=== PATIENT | male | born 1950 | race Caucasian/White ===

== ENCOUNTER → 2024-02-03 15:08 | Outpatient (REF) | payer OTHER, SELFPAY | LOC: RAD 15:08 | PROVIDERS: ATTENDING PHYSICIAN Nurse Practitioner Family | DX: S99.922A Unspecified injury of left foot, initial encounter (principal) | CPT/HCPCS: 73630 ==

== ENCOUNTER 2024-09-10 07:42 | Outpatient (RCR) | payer OTHER, SELFPAY | END 2024-09-10 23:59 | disposition home or self-care (01) | LOC: RPT 07:42 | PROVIDERS: ATTENDING PHYSICIAN Orthopaedic Surgery Hand Surgery; FAMILY PHYSICIAN Nurse Practitioner Family | DX: M75.122 Complete rotator cuff tear or rupture of left shoulder, not specified as traumatic (principal); Z73.6 Limitation of activities due to disability | CPT/HCPCS: 97010; 97110; 97162 ==

== ENCOUNTER 2024-09-24 06:32 | Outpatient (RCR) | payer OTHER, SELFPAY | END 2024-09-24 23:59 | disposition home or self-care (01) | LOC: RPT 06:32 | PROVIDERS: ATTENDING PHYSICIAN Orthopaedic Surgery Hand Surgery; FAMILY PHYSICIAN Nurse Practitioner Family | DX: M75.122 Complete rotator cuff tear or rupture of left shoulder, not specified as traumatic (principal); Z73.6 Limitation of activities due to disability; M25.512 Pain in left shoulder | CPT/HCPCS: 97010; 97110 ==

== ENCOUNTER 2024-10-15 07:02 | Outpatient (RCR) | payer OTHER, SELFPAY | END 2024-10-15 14:48 | disposition home or self-care (01) | LOC: RPT 07:02 | PROVIDERS: ATTENDING PHYSICIAN Orthopaedic Surgery Hand Surgery; FAMILY PHYSICIAN Nurse Practitioner Family | DX: M75.122 Complete rotator cuff tear or rupture of left shoulder, not specified as traumatic (principal); Z73.6 Limitation of activities due to disability; M25.512 Pain in left shoulder | CPT/HCPCS: 97110 ==

== ENCOUNTER → 2025-02-02 09:56 | Outpatient (REF) | payer OTHER, SELFPAY | LOC: RAD 09:56 | PROVIDERS: ATTENDING PHYSICIAN Nurse Practitioner Family | DX: M25.522 Pain in left elbow (principal) | CPT/HCPCS: 73060; 73080 ==

== ENCOUNTER 2025-06-02 07:29 | Emergency (ER) | payer OTHER, SELFPAY ==
[2025-06-02 07:36] VITALS: BP 150/92
[2025-06-02 07:39] VITALS: BMI 30.2
--- NOTE | 2025-06-02 08:04 | ED.GENMED ---
History of Present Illness
General
Chief Complaint: Fall
Source: patient
Exam Limitations: none
Time Seen by Provider: 06/02/25 07:54
Nursing documentation reviewed up to this point in time: agreed with
History of Present Illness
History of Present Illness:
74-year-old male with a past medical history as noted presents to the emergency department for evaluation after a fall. Patient states that he was out walking this morning. He walks with a cane and he says he was using his cane. He says that he
thinks he is cane may have gotten caught on something and he lost his balance and fell forward. He landed on his knees and left hand and then lowered himself to his side. He says he did not hit his head. He is adamant that he did not pass out.
He says he has had some pain and bruising in the left hand since and came to the ER for evaluation given that he is on blood thinners. He does have some mild bruising and some abrasions to the knees but says that he has no knee pain and has been
able to ambulate since the fall. He denies any headache or neck pain. He denies any chest/rib pain, back pain or abdominal pain. He denies any other acute complaints.
Past History
Past History
ED Past Medical History: GERD, Hypothyroidism, Psychiatric (major depression) and Other (migraines, numbness and tingling of the legs, transient global amnesia in 2008, cerebral palsy, arthritis, hypoglycemia); Negative Renal failure (CKD 3)
ED Past Surgical History: Orthopedic (bilateral knee arthroplasties) and Other (left third finger amputation)
Patient has exhibited threatening behavior?: No
PSI?: No
Social History
Tobacco: Non-smoker
Alcohol: None
Drug: None
Personal: Single
Living: with family
Employment: Not employed
Family History
Family History: Other (reviewed and non-contributory)
Review of Systems
Review of Systems
All Other Systems: ROS reviewed and negative except as documented in HPI and ROS
Respiratory: Denies trouble breathing
Cardiac: Denies chest pain
ABD/GI: Denies abdominal pain or nausea
: Denies flank pain
Musculoskeletal: Reports other (Hand pain); Denies neck pain or back pain
Neurological: Denies dizzy or headache
Phy Exam
Physical Exam
Physical Exam:
General: Awake, alert, oriented x3; no acute distress
Head: Normocephalic, atraumatic
Eyes: Conjunctiva normal, EOMI, subtle anisocoria with right greater than left which patient says is chronic
Throat: Airway intact, handling secretions, tongue atraumatic
Neck: Trachea midline, no cervical spine tenderness
Back: No signs of trauma to the back or flank and no tenderness of the thoracic or lumbar spine
Lungs: Breathing comfortably with no distress
Heart: Regular rate; no chest wall tenderness or bruising noted
Abd: Soft, non distended, nontender
Neuro: Cranial nerves grossly intact, speech fluid, no gross motor or sensory deficits
Skin: Minor abrasion to the knees and slight bruising to the knees; slight bruising to the dorsum of the left hand
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
snuffbox on the left, no tenderness in the forearm or elbow, shoulder; he is able to make a fist with his left hand and move the wrist through range of motion without pain in the wrist, only mild pain on the dorsum of the hand; right upper extremity
is atraumatic; on exam of the lower extremities he has scars from bilateral knee replacements; he has minor abrasions to both knees and some bruising of the knees but no significant joint effusion, full range of motion of the hips, knees without any
pain, no lower leg tenderness or swelling; he has good distal perfusion in all extremities
Scores
Heart Failure Risk
Heart Failure Risk Score: Not Applicable
Heart Score for Chest Pain Patients
STEMI patient?: Not applicable
Withdrawal Assessment of Alcohol
Withdrawal Assessment Completed?: Not applicable
Course
Orders/Labs/Results
Orders:
Orders
06/02/25 08:03
CR Hand - Left Min 3 Views Urgent
Comment:
Reason For Exam: left hand pain, brusing s/p fall
Vital Signs
Initial and Last Documented VS:
Initial Vital Signs
Pulse Resp BP Pulse Ox
60 16 150/92 98
06/02/25 07:36 06/02/25 07:36 06/02/25 07:36 06/02/25 07:36
Last Documented Vital Signs
Temp Pulse Resp BP Pulse Ox
36.8 C 69 16 160/82 98
06/02/25 07:54 06/02/25 08:36 06/02/25 08:36 06/02/25 08:36 06/02/25 08:07
Procedures
Splinting/Sling Placement
Left Hand:
Procedure completed by: Christian Romero MD
Pre-splint extermity exam: neurovascular intact
Type of splint: volar
Splint material: aluminum-foam
Splint checked by provider?: Yes
Normal distal neurovascular exam?: Yes
MDM/Problems Addressed
Differential Diagnosis Includes:
Hand injury: Fracture, contusion, sprain
MDM/Problems Addressed:
74-year-old male presents after mechanical trip and fall complaining of injury to the left hand. He denies any head strike or any other significant injuries aside from some minor bruises/abrasions to the knees. Hypertensive but otherwise normal
vitals. Physical exam as above. Will plan to check x-ray of the hand. He does have abrasions and abrasions to the skin he has full range of motion, minimal swelling and denies any pain; he is status post knee replacement bilaterally, in my
judgment very low suspicion for fracture and no indication for emergent x-ray. He is on anticoagulation and so consideration given to CT head but patient is adamant that he did not hit his head and denies any headache. He has no external signs of
trauma to the head. He has normal neurologic status. In my judgment indication for emergent CT head at this point in time. Abrasions were noted but patient states his tetanus is up-to-date after being lacerated by a hawk's talons while fishing
last year.
X-ray of the hand reviewed by me does show small nondisplaced fracture to the base of the fifth metatarsal. Patient placed in a volar splint by me. Stable for discharge will forward orthopedic for outpatient follow-up. Patient comfortable with
this plan. All questions answered.
Chronic conditions affecting care:
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
Acute Exacerbation and/or Progression of Chronic Illness:
Acutely hypertensive without symptoms of hypertensive emergency�no indication for emergent antihypertensives
Acute Exacerbation and/or Progression of Chronic Illness: HTN
*Radiology
Radiology exam reviewed: preliminary read by ED provider
*Pulse Oximetry
SaO2: 98
Oxygen Mode of Delivery: Room air
Patient hypoxic: no (98%)
*Critical Care Note
Total Time (30-74mins, 75-104mins- exclusive of procedures): Not Applicable
Data Reviewed
Review of Other/Old Records Reveals: Labs and Records
Source: patient and records
Further Testing Considered But Not Given:
Considered x-rays of the knees, considered CT of the head
ED Attending Note
-
Portions of this chart may have been created with voice recognition software.� Occasional wrong word or��sound alike� substitutions may have occurred due to the inherent limitations of voice recognition software.
Discharge Plan
Departure
Patient Disposition: Home (Routine Discharge)
Date of Disposition: 06/02/25
Time of Disposition: 08:40
Patient with high blood pressure during this ER visit?: Yes
Discharge Problem:
Fracture of hand
Instructions: Hand Fracture ED
Prescriptions:
No Action
levothyroxine 50 MCG tablet
50 mcg PO DAILY
rivaroxaban [Xarelto] 10 MG tablet
10 mg PO DAILY
fluticasone propionate 1 SPRAY spray,suspension
2 spray intranasal DAILY
escitalopram oxalate 10 MG tablet
10 mg PO DAILY
atorvastatin 40 MG tablet
40 mg PO QPM Qty: 30 0RF
clopidogrel 75 MG tablet
75 mg PO DAILY Qty: 30 0RF
fexofenadine [Lynette] 180 MG tablet
180 mg PO DAILY
cyclobenzaprine 10 MG tablet
10 mg PO TIDPRN PRN (Reason: spasm) Qty: 9 0RF
prednisone 10 MG tablet
10 mg PO .TAPER Qty: 30 0RF
Rx Instructions:
Take 40mg daily x3days, 30mg daily x3days,
20mg daily x3days, 10mg daily x3days.
Referrals:
Mu Mcneil MD [[facility], Orthopedics] - Call in 1-3 days for appt
Activity Restrictions/Additional Instructions:
Thank you for visiting the Emergency Department at [facility].
1. Please schedule a follow up appointment as directed. Call first thing tomorrow morning to make an appointment.
2. If indicated, please take your medications as instructed and indicated on discharge paperwork.
3. If any of your symptoms do not improve, or persist, or become more severe within 6-12 hours, please return to the emergency department for further care.
4. Please return to the emergency department if you develop a headache, neck pain/stiffness, fever greater than 100.4F, chest pain, shortness of breath, persistent nausea, vomiting, slurred speech, difficulty walking, numbness/tingling, weakness,
signs of infection or any other symptoms that are worrisome to you.
Please call [phone] if you have any questions.
Interventions
Interventions:
*Risk Screen - Suicide Last Done: 06/02/25 07:38
*General Assessment Last Done: 06/02/25 07:38
*Neglect/Abuse Screening Last Done: 06/02/25 07:38
*ED- Fall Risk Assessment Last Done: 06/02/25 07:39
*ED COVID-19 Vaccine History Last Done: 06/02/25 07:39
ED-Musculoskeletal Assessment Last Done: 06/02/25 07:39
ED- Neurological Assessment Last Done: 06/02/25 07:39
ED-Skin Assessment Last Done: 06/02/25 07:45
Discharge Date and Time
Print Language: CZECH
[2025-06-02 08:36] VITALS: BP 160/82
== END 2025-06-02 09:10 | disposition home or self-care (01) ==
LOC: EMR 07:29
PROVIDERS: EMERGENCY PHYSICIAN Emergency Medicine; FAMILY PHYSICIAN Nurse Practitioner Family
DX: S62.607A Fracture of unspecified phalanx of left little finger, initial encounter for closed fracture (principal); S80.02XA Contusion of left knee, initial encounter; S80.01XA Contusion of right knee, initial encounter; S60.222A Contusion of left hand, initial encounter; S80.212A Abrasion, left knee, initial encounter; S80.211A Abrasion, right knee, initial encounter; W18.39XA Other fall on same level, initial encounter; Y93.01 Activity, walking, marching and hiking; R20.0 Anesthesia of skin; R20.2 Paresthesia of skin; E03.9 Hypothyroidism, unspecified; K21.9 Gastro-esophageal reflux disease without esophagitis; F32.9 Major depressive disorder, single episode, unspecified; G43.909 Migraine, unspecified, not intractable, without status migrainosus; G80.9 Cerebral palsy, unspecified; M19.90 Unspecified osteoarthritis, unspecified site; E16.2 Hypoglycemia, unspecified; Z96.652 Presence of left artificial knee joint; Z79.01 Long term (current) use of anticoagulants; Z89.022 Acquired absence of left finger(s); Z86.73 Personal history of transient ischemic attack (TIA), and cerebral infarction without residual deficits; Z86.718 Personal history of other venous thrombosis and embolism; Z88.6 Allergy status to analgesic agent; Z88.0 Allergy status to penicillin
CPT/HCPCS: 99283; 29125; 73130

== ENCOUNTER → 2025-07-20 08:45 | Outpatient (REF) | payer OTHER, SELFPAY | LOC: RCS 08:45 | PROVIDERS: ATTENDING PHYSICIAN Internal Medicine Cardiovascular Disease; FAMILY PHYSICIAN Nurse Practitioner Family | DX: I63.9 Cerebral infarction, unspecified (principal); I48.0 Paroxysmal atrial fibrillation | CPT/HCPCS: 93306 ==

== ENCOUNTER 2025-07-23 09:21 | Outpatient (RCR) | payer OTHER, SELFPAY | END 2025-07-23 23:59 | disposition home or self-care (01) | LOC: ROT 09:21 | PROVIDERS: ATTENDING PHYSICIAN Student in an Organized Health Care Education/Training Program; FAMILY PHYSICIAN Nurse Practitioner Family | DX: S62.343D Nondisplaced fracture of base of third metacarpal bone, left hand, subsequent encounter for fracture with routine healing (principal); S62.345D Nondisplaced fracture of base of fourth metacarpal bone, left hand, subsequent encounter for fracture with routine healing; S62.347D Nondisplaced fracture of base of fifth metacarpal bone, left hand, subsequent encounter for fracture with routine healing; Z73.6 Limitation of activities due to disability; W01.0XXD Fall on same level from slipping, tripping and stumbling without subsequent striking against object, subsequent encounter | CPT/HCPCS: 97110; 97166; 97535 ==